=== PATIENT | female | born 1995 | race Caucasian/White ===

== ENCOUNTER 2021-01-24 05:25 | Inpatient (IN) | payer OTHER ==
[~2021-01-24] VITALS: Ht 167.6 cm; Wt 97.1 kg
[2021-01-24] MEDS ORDERED: PRENATABS FA T1 EACH PO (06:10)
[2021-01-24] MEDS ORDERED: IBUPROFEN600 MG PO (09:40)
[2021-01-24] MEDS ORDERED: HYDROCODON-ACE1 EAC4 PO (09:40)
[2021-01-24] MEDS ORDERED: DOCUSATE SODIU100 MG PO (09:40)
[2021-01-25 06:49] LABS: HEMOGLOBIN 9.2 gm/dl (12.3-15.3)
== END 2021-01-26 13:37 | disposition home or self-care (01) | DRG 787 ==
LOC: OB 05:25
PROVIDERS: ADMIT Obstetrics & Gynecology
PROC: 30233N1 Transfusion of Nonautologous Red Blood Cells into Peripheral Vein, Percutaneous Approach (ICD-10-PCS; 2021-01-24)
PROC: 4A1HXCZ Monitoring of Products of Conception, Cardiac Rate, External Approach (ICD-10-PCS; 2021-01-24)
PROC: 10D00Z1 Extraction of Products of Conception, Low, Open Approach (ICD-10-PCS; principal; 2021-01-24 07:30)
DX: O34.211 Maternal care for low transverse scar from previous cesarean delivery (principal); O72.1 Other immediate postpartum hemorrhage; Z37.0 Single live birth; O36.63X0 Maternal care for excessive fetal growth, third trimester, not applicable or unspecified; Z20.822 Contact with and (suspected) exposure to COVID-19; Z3A.39 39 weeks gestation of pregnancy
CPT/HCPCS: 36415; 81001; 82800; 85014; 85018; 85025; 90715; C9113; J0690; J1170; J1885; J2274; J2370; J2405; J2590; J3010; J7120; U0002

== ENCOUNTER → 2021-09-04 | Outpatient (CLI) | payer OTHER ==
[~2021-09-04] MED LIST: DOCUSATE SODIU100 MG PO; HYDROCODON-ACE1 EAC4 PO; IBUPROFEN600 MG PO; PRENATABS FA T1 EACH PO
== END ==
LOC: LAB 11:42
DX: N91.2 Amenorrhea, unspecified (principal)
CPT/HCPCS: 36415; 84702

== ENCOUNTER → 2021-10-20 | Outpatient (CLI) | payer OTHER | LOC: LAB 09:46 | DX: Z32.01 Encounter for pregnancy test, result positive (principal) | CPT/HCPCS: 36415; 84702 ==